=== PATIENT | female | born 1940 | race Caucasian/White ===

== ENCOUNTER 2022-03-28 13:34 | Outpatient (CLI) | payer MEDICARE, OTHER | END 2022-03-28 13:35 | disposition home or self-care (01) | LOC: BICMRI 13:34 | PROVIDERS: ATTEND Family Medicine | DX: M54.31 Sciatica, right side (principal); M48.062 Spinal stenosis, lumbar region with neurogenic claudication; G95.19 Other vascular myelopathies; M47.816 Spondylosis without myelopathy or radiculopathy, lumbar region; M51.27 Other intervertebral disc displacement, lumbosacral region | CPT/HCPCS: 72148 ==